=== PATIENT | male | born 1955 | race American Indian/Alaskan Native ===

== ENCOUNTER 2017-07-28 06:39 | Day surgery (SDC) | payer BC ==
[2017-07-20 11:06] VITALS: BMI 22.4
[2017-07-28] MEDS ORDERED: Sodium Chloride 0.9% 1,000 ML IV SCH (08:30)
[2017-07-28] MEDS ORDERED: Propofol 10 mg/ml Inj (20 ML) ONE (08:34)
[2017-07-28 09:58] VITALS: O2SAT 99
[2017-07-28 10:50] VITALS: BP 121/63; PULSE 46; RESP 19; TEMP 97.7
== END 2017-07-28 11:07 | disposition home or self-care (01) ==
LOC: ENDO 06:39
PROVIDERS: ATTEND Specialist
DX: Z12.11 Encounter for screening for malignant neoplasm of colon (principal); D12.3 Benign neoplasm of transverse colon; K63.5 Polyp of colon; K62.1 Rectal polyp; K64.8 Other hemorrhoids; Z86.010 Personal history of colon polyps
CPT/HCPCS: 45380; 45385; 88305; J2001; J2704; J7030; J7040